=== PATIENT | female | born 1995 | race Hispanic/Latino ===

== ENCOUNTER 2021-01-16 08:10 | Inpatient (IN) | payer BC ==
[2021-01-22] MEDS ORDERED: Bupivacaine PF 0.5% 30 ML VIAL ONE (08:00)
[2021-01-22] MEDS ORDERED: Bupivacaine 0.25% HCL 30 ML VIAL ONE (08:00)
[2021-01-22] MEDS ORDERED: Acetaminophen 500 MG TAB PO PRN (08:30)
[2021-01-22] MEDS ORDERED: Butorphanol Tartrate 1 MG/ML VIAL SLOW IVP PRN (08:30)
[2021-01-22] MEDS ORDERED: Methylergonovine 0.2 MG/ML VIAL IM PRN (08:30)
[2021-01-22] MEDS ORDERED: Diphenoxylate HCl/Atropine Tablet PO PRN ×2 (08:30)
[2021-01-22] MEDS ORDERED: hydrALAZINE 20 MG/ML VIAL SLOW IVP PRN ×2 (08:30→18:53)
[2021-01-22] MEDS ORDERED: Lidocaine 1% (PF) 30 ML VIAL SC PRN (08:30)
[2021-01-22] MEDS ORDERED: Promethazine HCl 25 MG/ML VIAL IM PRN ×2 (08:30→16:43)
[2021-01-22] MEDS ORDERED: Ondansetron PF 4 MG/2 ML Vial IVP PRN ×2 (08:30→16:43)
[2021-01-22] MEDS ORDERED: NS w/ Oxytocin 30 units 500 ML IV SCH (08:30)
[2021-01-22] MEDS ORDERED: Misoprostol 200 MCG TAB PR PRN (08:30)
[2021-01-22] MEDS ORDERED: NS w/ Oxytocin 30 units 500 ML IVPB SCH (08:30)
[2021-01-22] MEDS ORDERED: Carboprost 250 MCG/ML AMP IM PRN (08:30)
[2021-01-22] MEDS ORDERED: HYDROcodone/Acetaminophen 5/325 mg Tablet PO PRN (08:30)
[2021-01-22] MEDS ORDERED: Ibuprofen 800 MG TAB PO PRN (08:30)
[2021-01-22 10:09] LABS: Hemoglobin 11.2 g/dL (12.0-15.5); Mean Corpuscular HGB CONC 33.5 g/dL (32.0-36.0); Mean Corpuscular Volume 86.5 fl (81.6-98.3); Platelet Count 174 10x3/uL (150-450); RBC Distribution Width 13.2 % (11.5-14.5); Red Blood Cell (RBC) Count 3.86 10x6/uL (3.90-5.03); White Blood Cell (WBC) Count 7.2 10x3/uL (3.5-10.5)
[2021-01-22 10:10] VITALS: BMI 36.0
[2021-01-22 10:43] LABS: Hep B Surf Ag Non-Reactive S/CO (NonReactive); Syphilis Antibody Nonreactive (Nonreactive); Syphilis Antibody Index 0.03 S/CO (<1.00 Non-Reactive)
[2021-01-22 10:55] LABS: HBSAg Index 0.21 S/CO (0-0.99)
[2021-01-22] MEDS ORDERED: Fentanyl 2 mcg/Bup 0.1% Cadd 100 ML ONE (15:21)
[2021-01-22] MEDS: Lactated Ringer's 1,000 ML IV SCH ×2 (15:36→19:23)
[2021-01-22] MEDS ORDERED: ePHEDrine Sulfate 50 MG/10 ML VIAL SLOW IVP PRN (16:43)
[2021-01-22] MEDS ORDERED: Naloxone HCl 0.4 mg/ml Vial IVP PRN ×2 (16:43)
[2021-01-22] MEDS ORDERED: diphenhydrAMINE 50 MG/ML VIAL IVP PRN (16:43)
[2021-01-22] MEDS ORDERED: Hydrocerin (Eucerin) Cream 120 gm Jar TOP PRN (16:43)
[2021-01-22] MEDS ORDERED: Acetaminophen 325 MG TAB PO PRN (16:43)
[2021-01-22] MEDS ORDERED: Lactated Ringer's 500 ML IV PRN (16:43)
[2021-01-22] MEDS ORDERED: Fentanyl 2 mcg/Bupivacaine 0.1% Cassette 100 ML EPIDURAL SCH (16:45)
[2021-01-22] MEDS ORDERED: Communication Order-Pharmacy FS SCH (16:45)
[2021-01-22] MEDS ORDERED: Benzocaine-Menthol 82.5 ML CAN TOP PRN (18:53)
[2021-01-22] MEDS ORDERED: Milk Of Magnesia 30 ML UDCUP PO PRN (18:53)
[2021-01-22] MEDS ORDERED: traMADol HCl 50 MG TAB PO PRN (18:53)
[2021-01-22] MEDS ORDERED: Lanolin Ointment 7 GM TUBE TOP PRN (18:53)
[2021-01-22] MEDS ORDERED: diphenhydrAMINE 25 MG CAP PO PRN (18:53)
[2021-01-22] MEDS ORDERED: Bisacodyl 10 MG SUPP PR PRN (18:53)
[2021-01-22] MEDS ORDERED: Preparation H Ointment 28 GM TUBE PR PRN (18:53)
[2021-01-22] MEDS: Misoprostol 100 MCG TAB VAG SCH (19:23)
[2021-01-23] MEDS: Docusate Calcium (SURFAK) 240 MG CAP PO SCH ×2 (00:09→08:19)
[2021-01-23] MEDS: Ibuprofen 800 MG TAB PO SCH ×3 (00:09→13:37)
[2021-01-23] MEDS: Ferrous Sulfate 325 MG TAB PO SCH ×2 (08:19→17:07)
[2021-01-23] MEDS ORDERED: Prenatal Vitamin 1 TAB PO SCH (09:00)
[2021-01-23] MEDS ORDERED: Boostrix 0.5 ML (Tdap) VIAL IM ONE (18:53)
[2021-01-23 19:49] VITALS: BP 117/63; TEMP 97.7
== END 2021-01-23 21:20 | disposition home or self-care (01) | DRG 807 ==
LOC: CSHLD 01-22 08:28 → CSHPP 01-22 21:51
PROVIDERS: ADMIT Obstetrics & Gynecology; ATTEND Obstetrics & Gynecology
PROC: 10E0XZZ Delivery of Products of Conception, External Approach (ICD-10-PCS; principal; 2021-01-22)
PROC: 3E0P7VZ Introduction of Hormone into Female Reproductive, Via Natural or Artificial Opening (ICD-10-PCS; 2021-01-22)
DX: O80 Encounter for full-term uncomplicated delivery (principal); Z37.0 Single live birth; Z3A.39 39 weeks gestation of pregnancy
CPT/HCPCS: 36415; 51702; 85027; 86780; 86850; 86900; 86901; 87340; J7120

== ENCOUNTER 2022-09-24 08:02 | Day surgery (SDC) | payer BC ==
[2022-09-24] MEDS ORDERED: Acetaminophen 500 MG TAB ONE (08:20)
[2022-09-24] MEDS ORDERED: Iron Sucrose Complex 500 MG in Sodium Chloride 0.9% 250 ML 250 ML IVPB SCH (08:30)
[2022-09-24] MEDS ORDERED: Acetaminophen 500 MG TAB PO SCH (08:30)
== END 2022-09-24 13:15 | disposition home or self-care (01) ==
LOC: CSHSDC/OP 08:02
PROVIDERS: ATTEND Student in an Organized Health Care Education/Training Program
DX: O99.019 Anemia complicating pregnancy, unspecified trimester (principal); D64.9 Anemia, unspecified; Z3A.00 Weeks of gestation of pregnancy not specified
CPT/HCPCS: J1756; J7050

== ENCOUNTER 2022-10-03 14:50 | Day surgery (SDC) | payer BC ==
[2022-10-03] MEDS ORDERED: hydrALAZINE 20 MG/ML VIAL SLOW IVP PRN (15:29)
== END 2022-10-03 19:32 | disposition home or self-care (01) ==
LOC: CSHLD/OP 14:50
PROVIDERS: ATTEND Emergency Medicine
DX: O36.8330 Maternal care for abnormalities of the fetal heart rate or rhythm, third trimester, not applicable or unspecified (principal); O99.213 Obesity complicating pregnancy, third trimester; E66.9 Obesity, unspecified; O99.013 Anemia complicating pregnancy, third trimester; D64.9 Anemia, unspecified; O98.813 Other maternal infectious and parasitic diseases complicating pregnancy, third trimester; B95.1 Streptococcus, group B, as the cause of diseases classified elsewhere; Z3A.35 35 weeks gestation of pregnancy; Z79.899 Other long term (current) drug therapy
CPT/HCPCS: 76819; 99282

== ENCOUNTER 2022-10-30 05:30 | Inpatient (IN) | payer BC ==
[2022-10-30] MEDS ORDERED: Bupivacaine 0.25% HCL 30 ML VIAL ONE (19:41)
[2022-10-30 20:09] VITALS: BMI 38.0
[2022-10-30] MEDS ORDERED: Methylergonovine 0.2 MG/ML VIAL IM PRN (21:04)
[2022-10-30] MEDS ORDERED: Diphenoxylate HCl/Atropine Tablet PO PRN (21:04)
[2022-10-30] MEDS ORDERED: hydrALAZINE 20 MG/ML VIAL SLOW IVP PRN (21:04)
[2022-10-30] MEDS ORDERED: Tranexamic Acid 1,000 MG/10 ML VIAL IVP PRN (21:04)
[2022-10-30] MEDS ORDERED: Docusate 100 MG CAP PO PRN (21:04)
[2022-10-30] MEDS ORDERED: Promethazine HCl 25 MG/ML VIAL IM PRN (21:04)
[2022-10-30] MEDS ORDERED: Ondansetron PF 4 MG/2 ML Vial IVP PRN (21:04)
[2022-10-30] MEDS ORDERED: Misoprostol 200 MCG TAB PR PRN (21:04)
[2022-10-30] MEDS ORDERED: Acetaminophen 500 MG TAB PO PRN (21:04)
[2022-10-30] MEDS ORDERED: Carboprost 250 MCG/ML AMP IM PRN (21:04)
[2022-10-30] MEDS ORDERED: Lidocaine 1% (PF) 30 ML VIAL SC PRN (21:04)
[2022-10-30] MEDS ORDERED: Oxytocin 30 units/NS 500 ML 500 ML IV SCH ×2 (21:15)
[2022-10-30] MEDS: Misoprostol 100 MCG TAB VAG SCH (21:31)
[2022-10-30] MEDS ORDERED: Penicillin G Potassium 5 MILL.UNITS in Sodium Chloride 0.9% 100 ML IVPB SCH (22:00)
[2022-10-30] MEDS: Lactated Ringer's 1,000 ML IV SCH (22:22)
[2022-10-30 22:26] LABS: Hematocrit 34.6 % (34.9-44.5); Hemoglobin 11.4 g/dL (12.0-15.5); Mean Corpuscular HGB CONC 32.9 g/dL (32.0-36.0); Mean Corpuscular Hemoglobin 28.4 pg (27.0-33.0); Mean Corpuscular Volume 86.1 fl (81.6-98.3); Platelet Count 176 10x3/uL (150-450); RBC Distribution Width 12.9 % (11.5-14.5); Red Blood Cell (RBC) Count 4.02 10x6/uL (3.90-5.03); White Blood Cell (WBC) Count 7.2 10x3/uL (3.5-10.5)
[2022-10-30 23:12] LABS: HBSAg Index 0.17 S/CO (0-0.99); Hep B Surf Ag - L&D Non-Reactive S/CO (NonReactive)
[2022-10-31] MEDS: Misoprostol 100 MCG TAB VAG SCH ×3 (00:15→19:12)
[2022-10-31 01:07] LABS: Syphilis Antibody Nonreactive (Nonreactive); Syphilis Antibody Index 0.03 S/CO (<1.00 Non-Reactive)
[2022-10-31] MEDS: Penicillin G 2.5 MILL.units 2.5 MILL.UNITS in Premix Bag 1 BAG IVPB SCH ×3 (02:22→11:30)
[2022-10-31] MEDS: Lactated Ringer's 1,000 ML IV SCH ×2 (02:22→11:30)
[2022-10-31] MEDS ORDERED: fentaNYL/Ropivacaine Epidural 100 ML ONE (08:18)
[2022-10-31] MEDS ORDERED: diphenhydrAMINE 50 MG/ML VIAL IVP PRN (09:22)
[2022-10-31] MEDS ORDERED: ePHEDrine Sulfate 50 MG/10 ML VIAL SLOW IVP PRN (09:22)
[2022-10-31] MEDS ORDERED: Acetaminophen 325 MG TAB PO PRN (09:22)
[2022-10-31] MEDS ORDERED: Moisturizing Cream (Eucerin) 113 GM JAR TOP PRN (09:22)
[2022-10-31] MEDS ORDERED: Promethazine HCl 25 MG/ML VIAL IM PRN (09:22)
[2022-10-31] MEDS ORDERED: Lactated Ringer's 500 ML IV PRN (09:22)
[2022-10-31] MEDS ORDERED: Ondansetron PF 4 MG/2 ML Vial IVP PRN ×2 (09:22→13:47)
[2022-10-31] MEDS ORDERED: Naloxone HCl 0.4 mg/ml Vial IVP PRN ×2 (09:22)
[2022-10-31] MEDS ORDERED: ACTIVE EPIDURAL FS PRN (09:30)
[2022-10-31] MEDS ORDERED: fentaNYL 2 mcg/Ropivacaine 0.2% Epidural 100 ML CADD EPIDURAL SCH (09:30)
[2022-10-31] MEDS ORDERED: Milk Of Magnesia 30 ML UDCUP PO PRN (13:47)
[2022-10-31] MEDS ORDERED: Benzocaine-Menthol 82.5 ML CAN TOP PRN (13:47)
[2022-10-31] MEDS ORDERED: Boostrix 0.5 ML (Tdap) VIAL (>/=7 yrs of age) IM ONE (13:47)
[2022-10-31] MEDS ORDERED: diphenhydrAMINE 25 MG CAP PO PRN (13:47)
[2022-10-31] MEDS ORDERED: Preparation H Ointment 28 GM TUBE PR PRN (13:47)
[2022-10-31] MEDS ORDERED: Bisacodyl 10 MG SUPP PR PRN (13:47)
[2022-10-31] MEDS ORDERED: Lanolin Ointment 7 GM TUBE TOP PRN (13:47)
[2022-10-31] MEDS ORDERED: hydrALAZINE 20 MG/ML VIAL SLOW IVP PRN (13:47)
[2022-10-31] MEDS: Ibuprofen 800 MG TAB PO SCH ×2 (14:34→21:25)
[2022-10-31] MEDS: Ferrous Sulfate 325 MG TAB PO SCH (14:46)
[2022-10-31] MEDS: Docusate 100 MG CAP PO SCH (21:25)
[2022-11-01] MEDS: Ibuprofen 800 MG TAB PO SCH ×3 (06:01→21:13)
[2022-11-01] MEDS: Ferrous Sulfate 325 MG TAB PO SCH ×2 (08:02→15:31)
[2022-11-01] MEDS: Docusate 100 MG CAP PO SCH ×2 (08:02→21:13)
[2022-11-01] MEDS: Prenatal Vitamin 1 TAB PO SCH (08:02)
[2022-11-02] MEDS: Ibuprofen 800 MG TAB PO SCH (05:31)
[2022-11-02] MEDS: Ferrous Sulfate 325 MG TAB PO SCH (07:57)
[2022-11-02 08:17] VITALS: BP 109/53; TEMP 97.9
[2022-11-02] MEDS: Docusate 100 MG CAP PO SCH (08:22)
[2022-11-02] MEDS: Prenatal Vitamin 1 TAB PO SCH (08:22)
== END 2022-11-02 09:15 | disposition home or self-care (01) | DRG 807 ==
LOC: CSHLD 19:06 → CSHPP 10-31 14:20
PROVIDERS: ADMIT Obstetrics & Gynecology; ATTEND Obstetrics & Gynecology
PROC: 10E0XZZ Delivery of Products of Conception, External Approach (ICD-10-PCS; principal; 2022-10-31)
PROC: 0HQ9XZZ Repair Perineum Skin, External Approach (ICD-10-PCS; 2022-10-31)
PROC: 10907ZC Drainage of Amniotic Fluid, Therapeutic from Products of Conception, Via Natural or Artificial Opening (ICD-10-PCS; 2022-10-31)
PROC: 3E033XZ Introduction of Vasopressor into Peripheral Vein, Percutaneous Approach (ICD-10-PCS; 2022-10-31)
PROC: 3E033VJ Introduction of Other Hormone into Peripheral Vein, Percutaneous Approach (ICD-10-PCS; 2022-10-31)
DX: O99.02 Anemia complicating childbirth (principal); Z37.0 Single live birth; Z3A.39 39 weeks gestation of pregnancy; D64.9 Anemia, unspecified; O99.824 Streptococcus B carrier state complicating childbirth; O70.0 First degree perineal laceration during delivery; Z88.8 Allergy status to other drugs, medicaments and biological substances
CPT/HCPCS: 51702; 85027; 86780; 86850; 86900; 86901; 87340; J2540; J2590; J3490; J7120; S0020